=== PATIENT | female | born 1980 | race Caucasian/White ===

== ENCOUNTER 2016-12-12 05:31 | Day surgery (SDC) | payer OTHER ==
[2016-12-09 11:09] LABS: BASOPHILS 0.6 % (0-2); EOSINOPHILS 1.5 % (0-7); HEMATOCRIT 39.7 % (36.0-48.0); HEMOGLOBIN 12.5 g/dL (12-16); IMMATURE GRANULOCYTES 0.2 % (0-5); MCH 26.7 pg (26.0-34.0); MCHC 31.5 g/dL (31.0-37.0); MCV 84.8 fL (80.0-100.0); MONOCYTES 5.5 % (2-11); NEUTROPHILS 59.2 % (40-80); PLATELET COUNT 232 10x3/uL (130-400); RBC 4.68 10x6/uL (4.00-5.40); RDW 13.4 % (11.5-14.5); WBC 8.9 10x3/uL (4.8-10.8)
[2016-12-09 11:41] LABS: CALC OSMOLALITY 280 mosm/kg (275-300); CALCIUM 9.1 mg/dL (8.5-10.1); CARBON DIOXIDE 27.4 mmol/L (21.0-32.0); CHLORIDE - SERUM 106 mmol/L (98-107); CREATININE - SERUM 0.8 mg/dL (0.6-1.3); GLUCOSE 93 mg/dL (74-106); POTASSIUM - SERUM 4.5 mmol/L (3.5-5.1); SODIUM 141 mmol/L (136-145); UREA NITROGEN 13 mg/dL (7-18); eGFR NON AFRICAN AMERICAN 87 mL/min (90-120)
[~2016-12-12] VITALS: Ht 172.7 cm; Wt 145.1 kg
[~2016-12-12 05:31] MED LIST: AMBIEN10 MG PO; AMOXICILLIN500 M1 PO; ATIVAN1 MG PO; BIAXIN 500 MG500 MG PO; CLARITIN 10 MG10 MG PO; FERROUS SULFAT325 MG PO; FIBER GUMMIES PO; HYDROCODONE-APA1 TAB PO; METFORMIN HCL500 M1 PO; OMEPRAZOLE40 MG PO; SYNTHROID112 MCG PO; SYNTHROID75 MCG PO
[2016-12-12 05:42] VITALS: BP 115/71; Ht 172.7 cm; Wt 145.1 kg
[2016-12-12 06:10] LABS: HCG SERUM NEGATIVE (NEGATIVE)
--- NOTE | 2016-12-12 10:03 | NUR ---
IV DC WITH CATHER TIP INTACT
== END 2016-12-12 10:05 | disposition home or self-care (01) ==
LOC: D.OPS 05:31 → D.PAN 07:30 → D.OPS 07:30
PROVIDERS: Obstetrics & Gynecology
DX: N92.0 Excessive and frequent menstruation with regular cycle (principal); E28.2 Polycystic ovarian syndrome; N84.0 Polyp of corpus uteri; N93.8 Other specified abnormal uterine and vaginal bleeding; E03.9 Hypothyroidism, unspecified; G47.30 Sleep apnea, unspecified; D50.9 Iron deficiency anemia, unspecified; K21.9 Gastro-esophageal reflux disease without esophagitis; K58.9 Irritable bowel syndrome, unspecified; F41.9 Anxiety disorder, unspecified; Z87.891 Personal history of nicotine dependence; Z88.8 Allergy status to other drugs, medicaments and biological substances; Z79.84 Long term (current) use of oral hypoglycemic drugs; Z79.899 Other long term (current) drug therapy

== ENCOUNTER → 2020-09-18 | Emergency (ER) | payer BC ==
[~2020-09-18] VITALS: Ht 172.7 cm; Wt 154.5 kg
[~2020-09-18] MED LIST changes: +AMOXICILLIN875 MG PO; +LEXAPRO5 MG; +MELATONIN10 M1
[2020-09-18 08:32] VITALS: Ht 172.7 cm; Wt 154.5 kg
[2020-09-18 12:39] VITALS: BP 138/93
== END | disposition home or self-care (01) ==
LOC: D.ER 08:24
DX: M54.2 Cervicalgia (principal); R22.32 Localized swelling, mass and lump, left upper limb